=== PATIENT | male | born 1980 | race Caucasian/White ===

== ENCOUNTER 2017-06-11 09:00 | Emergency (ER) | payer SELFPAY ==
[2017-06-11] MEDS ORDERED: LORazepam 1 MG TABLET PO ONE (09:26)
--- NOTE | 2017-06-11 09:26 | PDOC ---
Psych/Suicidal/OD HPI - General Chief Complaint: Psychiatric Complaint Stated Complaint: PANIC, DISCONNECTED FEELING x7 DAYS Date Seen by Provider: 06/11/17 Time Seen by Provider: 09:22 Source: POSITIVE: Patient Exam Limitations: POSITIVE: No limitations Nurse's Notes Reviewed & Considered: Yes - History of Present Illness Initial Comments: This is a 37-year-old male who presents to the emergency department with a history of being out of his medications for last 7 days. He is supposed be on Lexapro 20 mg a day and Klonopin 1 mg twice a day, but he has missed a few doctor's appointments and so he has been out of his medications for week. He is feeling increased anxiety and disordered thinking since he has been out of his medication. The nurses have made an appointment with Dr. Benavides on which is 3 days from now. He has no other complaints. - Patient Home Medications Home Medications: Home Medications Medication Instructions Recorded Confirmed Clonazepam 1 mg PO BID 06/11/17 06/11/17 Escitalopram Oxalate [Lexapro] 20 mg PO DAILY 06/11/17 06/11/17 - Patient Allergies Allergies/Adverse Reactions: Allergies Allergy/AdvReac Type Severity Reaction Status Date / Time No Known Allergies Allergy Verified 06/11/17 09:05 Past Medical History Psychiatric History: Anxiety Disorders ROS Constitution: DENIES: Chills, Fever Cardiovascular: DENIES: Chest Pain Psychiatric: POSITIVE: Anxiety, Depression Psych/Suicidal/OD Exam - General Appearance General Appearance: POSITIVE: Alert, Mild Distress - HEENT HEENT: NEGATIVE: Scleral Icterus - Neurological/Psychological Mental Status: POSITIVE: Other (Quite anxious.) Orientation: POSITIVE: Oriented x3 - Respiratory Respiratory: POSITIVE: No Respiratory Distress, Breath Sounds Normal - CVS Cardiovascular: POSITIVE: Heart Sounds Normal, Tachycardia. NEGATIVE: Murmur - Skin Skin: POSITIVE: Warm, Dry, No Rash Psych/Suicidal/OD Progress - Patient's Progress Re-Examine Time: 09:27 Status: POSITIVE: Unchanged MDM / ED Course: Emergency room course: After initial evaluation, the patient was given a dose of Ativan 1 mg by mouth. I will go ahead and write him prescriptions for the Lexapro and Klonopin to get him through to his appointment time on . - Medical Clearance for Psych Referral Metabolic Causes: POSITIVE: Drug Withdrawal (Withdrawal from Lexapro and Klonopin) - Consult Counseled: POSITIVE: Patient, Family (Mom), RE: DX, RE: Need for F/U Patient Care Time - Estimated PCT Patient Care Time (In Minutes): 5 Discharge Clinical Impression: Anxiety Discharge Disposition: Discharged to Home Condition: Stable Patient Instructions Given at Discharge: Depression (ED), Anxiety (ED)
[2017-06-11 09:32] VITALS: RESP 16; TEMP 98.3
== END 2017-06-11 09:52 | disposition home or self-care (01) ==
LOC: ER 09:00
DX: F41.9 Anxiety disorder, unspecified (principal)
CPT/HCPCS: 99282